=== PATIENT | male | born 1970 | race Caucasian/White ===

== ENCOUNTER 2017-02-12 22:25 | Emergency (ER) | payer OTHER ==
[2017-02-12 22:48] LABS: BASOPHIL 0.5 % (0-2); EOSINOPHIL 2.2 % (0-5); HCT 39.4 % (42.0-52.0); HGB 14.1 g/dl (13.2-18.0); LYMPHOCYTE 40.2 % (15-48); MCHC 35.8 g/dL (32.0-36.0); MCV 89.5 fL (78.0-100.0); MONOCYTE 7.2 % (0-12); MPV 9.6 fL (6.0-9.5); NEUTROPHIL 49.9 % (41-80); PLT 187 K/uL (150-400); RDW 13.7 % (11.5-14.0); WBC 8.1 K/uL (4.0-10.5)
[2017-02-12 22:57] LABS: INR 1.01 (0.9-1.2); PROTHROMBIN TIME 12.4 SECONDS (11.4-13.2); PTT 26.9 SECONDS (24.3-32.1)
[2017-02-12 23:03] LABS: ALBUMIN 4.4 g/dL (3.5-5.0); BILIRUBIN - TOTAL 0.9 mg/dL (0.1-1.0); CREATININE 1.1 mg/dL (0.7-1.2); TOTAL PROTEIN 7.4 g/dL (6.4-8.3)
[2017-02-13 00:15] LABS: BILIRUBIN NEGATIVE (NEGATIVE); BLOOD 3+ Ery/uL (NEGATIVE); CLARITY HAZY (CLEAR); COLOR YELLOW (YELLOW); GLUCOSE (U) NORMAL (NORMAL); KETONE (U) 1+ (SMALL) mg/dL (NEGATIVE); LEUKOCYTES NEGATIVE Leu/uL (NEGATIVE); NITRITE NEGATIVE (NEGATIVE); PROTEIN NEGATIVE (NEGATIVE); SPECIFIC GRAVITY 1.015 (1.001-1.030); UROBILINOGEN 0.2 mg/dL (0.2-1.0)
[2017-02-13 00:20] LABS: MUCOUS MODERATE; SQUAMOUS EPITHELIAL CELLS RARE; URINARY RBC TNTC; URINARY WBC RARE
[2017-02-13 00:24] LABS: AMPHETAMINES NEGATIVE (NEGATIVE); BARBITURATES NEGATIVE (NEGATIVE); BENZODIAZEPINES NEGATIVE (NEGATIVE); COCAINE NEGATIVE (NEGATIVE); MARIJUANA (THC) NEGATIVE (NEGATIVE); METHADONE NEGATIVE (NEGATIVE); TRICYCLIC ANTIDEPRESSANT NEGATIVE (NEGATIVE)
== END 2017-02-13 01:02 | disposition home or self-care (01) ==
LOC: FER 22:25
PROVIDERS: Internal Medicine
DX: K21.9 Gastro-esophageal reflux disease without esophagitis (principal); E11.9 Type 2 diabetes mellitus without complications; Z87.442 Personal history of urinary calculi; Z95.5 Presence of coronary angioplasty implant and graft; Z98.890 Other specified postprocedural states; Z91.041 Radiographic dye allergy status; Z79.82 Long term (current) use of aspirin; Z79.899 Other long term (current) drug therapy; Z79.84 Long term (current) use of oral hypoglycemic drugs
CPT/HCPCS: 36415; 80053; 80305; 81001; 85025; 85610; 85730; J1170; J1885; J2270; J2405

== ENCOUNTER 2021-07-19 00:35 | Emergency (ER) | payer OTHER ==
[~2021-07-19 00:35] MED LIST: 3IN1 COMMODE; ASPIR 8181 MG PO; CRESTOR5 MG PO; METFORMIN HCL500 MG PO; NITROSTAT0.4 MG PO; NORVASC5 MG PO; PRILOSEC20 MG PO; PRINIVIL10 MG PO; VITAMIN D10000 UNIT PO
[2021-07-19 01:01] LABS: EOSINOPHIL 3.7 % (0-5); HCT 45.3 % (42.0-52.0); HGB 15.5 g/dl (13.2-18.0); LYMPHOCYTE 46.2 % (15-48); MCH 31.5 pg (25.0-31.0); MCHC 34.2 g/dL (32.0-36.0); MCV 92.1 fL (78.0-100.0); MONOCYTE 6.2 % (0-12); NEUTROPHIL 41.6 % (41-80); NRBC 0.2; PLT 162 K/uL (150-400); RBC 4.92 M/uL (4.70-6.00); RDW 13.9 % (11.5-14.0); WBC 10.4 K/uL (4.0-10.5)
[2021-07-19 01:22] LABS: ALBUMIN 4.2 g/dL (3.4-5.0); BILIRUBIN - TOTAL 0.5 mg/dL (0.2-1.0); BUN/CREAT RATIO (CALC) 13.8 RATIO; CREATININE 0.8 mg/dL (0.67-1.17); GLOBULIN (CALCULATION) 3.5 g/dL; POTASSIUM 3.3 mmol/L (3.5-5.1); TOTAL PROTEIN 7.7 g/dL (6.4-8.2)
[2021-07-19 05:03] LABS: AMPHETAMINES NEGATIVE (NEGATIVE); BARBITURATES NEGATIVE (NEGATIVE); ECSTASY (MDMA) NEGATIVE (NEGATIVE); MARIJUANA (THC) NEGATIVE (NEGATIVE); METHADONE NEGATIVE (NEGATIVE); OPIATES POSITIVE (NEGATIVE); OXYCODONE NEGATIVE (NEGATIVE)
[2021-07-19] MEDS ORDERED: NORCO 5-325 TA1 EACH PO (08:28)
== END 2021-07-19 08:37 | disposition home or self-care (01) ==
LOC: FER 00:35
PROVIDERS: Emergency Medicine
DX: S22.42XA Multiple fractures of ribs, left side, initial encounter for closed fracture (principal); S27.1XXA Traumatic hemothorax, initial encounter; R00.2 Palpitations; I10 Essential (primary) hypertension; I25.10 Atherosclerotic heart disease of native coronary artery without angina pectoris; E11.9 Type 2 diabetes mellitus without complications; Y04.2XXA Assault by strike against or bumped into by another person, initial encounter; Y92.009 Unspecified place in unspecified non-institutional (private) residence as the place of occurrence of the external cause
CPT/HCPCS: 36415; 70450; 71045; 71250; 71260; 72125; 80053; 80305; 83690; 84484; 85025; 86850; 86900; 86901; 93005; G0480; J1170; J1200; J2405; J2930; J3010; J7030; Q9967